=== PATIENT | male | born 1980 | race African-American/Black ===

== ENCOUNTER 2019-06-26 21:10 | Emergency (ER) | payer OTHER ==
[~2019-06-26] VITALS: Ht 172.7 cm; Wt 95.3 kg
--- NOTE | 2019-06-26 21:49 | NUR ---
PT BIBS FOR C/O SI W/ PLAN TO "GET A ROPE A HANG MYSELF". PT AAOX4, RR EVEN AND UNLABORED W/ NAD NOTED. SUICIDE SAFETY PRECAUTIONS IMPLEMENTED W/ SITTER AT BEDSIDE. PT WANDED.
--- NOTE | 2019-06-26 22:15 | NUR ---
PT ON CONSTANT OBSERVATION W/ SITTER AT BEDSIDE FOR SAFETY. NO ACUTE DISTRESS NOTED
[2019-06-26 22:20] LABS: BASOPHILS # (AUTO) 0.1 /CMM (0.0-0.2); BASOPHILS % (AUTO) 1.1 % (0.0-2.0); EOSINOPHILS % (AUTO) 7.8 % (0.0-6.0); HEMATOCRIT 41 % (39-51); HEMOGLOBIN 13.7 g/dL (13.5-17.5); LYMPHOCYTES # (AUTO) 3.1 /CMM (0.8-4.8); LYMPHOCYTES % (AUTO) 33.4 % (20.0-44.0); MEAN CORPUSCULAR HGB CONC 33 g/dl (31.0-36.0); MEAN CORPUSCULAR VOLUME 84 fL (80-96); MONOCYTES % (AUTO) 11.1 % (2.0-12.0); NEUTROPHILS # (AUTO) 4.3 /CMM (1.8-8.9); NEUTROPHILS % (AUTO) 46.6 % (43.0-81.0); PLATELET COUNT (AUTO) 294 /CMM (150-450); RED BLOOD CELL COUNT(AUTO) 4.86 MIL/uL (4.5-6.0); WHITE BLOOD COUNT (AUTO) 9.3 K/uL (4.3-11.0)
[2019-06-26] MEDS ORDERED: OLANZAPINE 5 MG TABLET PO ONE (22:30)
[2019-06-26] MEDS ORDERED: OLANZAPINE 5 MG TABLET ONE (22:34)
[2019-06-26 22:55] LABS: ALANINE AMINOTRANSFERASE 52 U/L (12-78); ALBUMIN 3.8 g/dL (3.4-5.0); ALKALINE PHOSPHATASE 107 U/L (46-116); ASPARTATE AMINOTRANSFERASE 32 U/L (15-37); BILIRUBIN,DIRECT 0.1 mg/dL (0.0-0.2); BILIRUBIN,TOTAL 0.2 mg/dL (0.2-1.0); CALCIUM, SERUM 9.2 mg/dL (8.5-10.1); CARBON DIOXIDE 27 mmol/L (21-32); CHLORIDE 107 mmol/L (98-107); CREATININE 1.1 mg/dL (0.6-1.3); GLUCOSE 103 mg/dL (74-106); POTASSIUM 3.8 mmol/L (3.5-5.1); SODIUM SERUM 143 mmol/L (136-145); TOTAL PROTEIN, SERUM 7.4 g/dL (6.4-8.2); UREA NITROGEN, BLOOD 11 mg/dL (7-18)
[2019-06-26 22:58] LABS: ACETAMINOPHEN 0 ug/ml (10-30); ALCOHOL, BLOOD < 3 mg/dL (0-0); SALICYLATE 1.9 mg/dL (2.8-20.0)
[2019-06-26 22:58] LABS: APPEARANCE,URINE Clear (CLEAR); BILIRUBIN,URINE Negative (NEGATIVE); BLOOD, URINE Negative Ery/uL (NEGATIVE); COLOR,URINE Yellow (YELLOW); KETONES,URINE Negative (NEGATIVE); LEUKOCYTE ESTERASE ,URINE Negative (NEGATIVE); NITRITE, URINE Negative (NEGATIVE); PH,URINE 5.5 (5.0-8.0); PROTEIN,URINE Negative (NEGATIVE); UGLUCOSE Negative (NEGATIVE); UROBILINOGEN,URINE 0.2 EU/dL (0.2)
--- NOTE | 2019-06-27 00:08 | NUR ---
PT ASLEEP, NO ACUTE DISTRESS NOTED, RESP EVEN AND UNLABORED. CALL LIGHT WITHIN REACH. 1:1 SITTER REMAINS AT BEDSIDE FOR PT SAFETY.
--- NOTE | 2019-06-27 00:41 | NUR ---
CLINICALS FAXED TO [facility] FOR VOLUNTARY ADMISSION.
--- NOTE | 2019-06-27 01:38 | NUR ---
PT ON CONSTANT OBSERVATION W/ SITTER AT BEDSIDE FOR SAFETY. PT ASLEEP, NO ACUTE DISTRESS NOTED, RESP EVEN AND UNLABORED. CALL LIGHT WITHIN REACH.
--- NOTE | 2019-06-27 01:48 | NUR ---
SPOKE TO GERA FROM [facility] INTAKE PT ACCEPTED AT [facility] ACCEPTING MD: FIONA PHONE # FOR REPORT PT WILL GO UNIT 1
--- NOTE | 2019-06-27 02:02 | NUR ---
CALL THE [facility] [id number] TRANSPORT ([facility]) ETA [id number]
--- NOTE | 2019-06-27 02:19 | NUR ---
REPORT GIVEN TO LENA PERKINS
[2019-06-27 03:02] VITALS: BP 131/81
--- NOTE | 2019-06-27 03:04 | NUR ---
report given to ems, pt stable for transfer
== END 2019-06-27 03:06 ==
LOC: ER 21:12
DX: R45.851 Suicidal ideations (principal); F29 Unspecified psychosis not due to a substance or known physiological condition; I10 Essential (primary) hypertension
CPT/HCPCS: 36415; 80048; 80076; 80305; 80307; 80329; 81001; 85025; 99285; G0480; 81000-TC

== ENCOUNTER 2019-07-09 13:03 | Emergency (ER) | payer OTHER ==
[~2019-07-09] VITALS: Ht 172.7 cm; Wt 90.7 kg
--- NOTE | 2019-07-09 13:10 | NUR ---
PT BIB SELF C/O SUICIDAL IDEATION "I WANT TO HANG MY SELF", PTIS AAOX4, NOT IN RESPIRATORY DISTRESS, V/S STABLE, KEPT RESTED AND COMFORTABLE, WILL CONTINUE TO MONITOR. WITH 1 TO 1 SITTER AT BEDSIDE.
--- NOTE | 2019-07-09 13:15 | NUR ---
SEEN AND EXAMINED BY RYAN ROSALES
--- NOTE | 2019-07-09 13:19 | NUR ---
SECURITY AT BEDSIDE FOR WANDING.
--- NOTE | 2019-07-09 13:20 | NUR ---
ER PHLEB AT BEDSIDE FOR BLOOD DRAW.
--- NOTE | 2019-07-09 13:20 | NUR ---
URINE SPECIMEN COLLECTED AND SENT TO LAB.
[2019-07-09 13:35] LABS: HEMATOCRIT 40 % (39-51); HEMOGLOBIN 13.2 g/dL (13.5-17.5); MEAN CORPUSCULAR HGB CONC 33 g/dl (31.0-36.0); MEAN CORPUSCULAR VOLUME 84 fL (80-96); RED BLOOD CELL COUNT(AUTO) 4.75 MIL/uL (4.5-6.0); WHITE BLOOD COUNT (AUTO) 6.8 K/uL (4.3-11.0)
[2019-07-09 13:36] LABS: BASOPHILS # (AUTO) 0.1 /CMM (0.0-0.2); BASOPHILS % (AUTO) 1.4 % (0.0-2.0); LYMPHOCYTES # (AUTO) 2.2 /CMM (0.8-4.8); LYMPHOCYTES % (AUTO) 32.4 % (20.0-44.0); MONOCYTES # (AUTO) 0.7 /CMM (0.1-1.30); NEUTROPHILS # (AUTO) 3.2 /CMM (1.8-8.9); NEUTROPHILS % (AUTO) 47.2 % (43.0-81.0); PLATELET COUNT (AUTO) 321 /CMM (150-450)
[2019-07-09 13:38] LABS: APPEARANCE,URINE Clear (CLEAR); BILIRUBIN,URINE Negative (NEGATIVE); BLOOD, URINE Negative Ery/uL (NEGATIVE); COLOR,URINE Yellow (YELLOW); KETONES,URINE Negative (NEGATIVE); LEUKOCYTE ESTERASE ,URINE Negative (NEGATIVE); NITRITE, URINE Negative (NEGATIVE); PH,URINE 5.5 (5.0-8.0); PROTEIN,URINE Negative (NEGATIVE); UGLUCOSE Negative (NEGATIVE)
[2019-07-09 13:43] LABS: CALCIUM, SERUM 8.7 mg/dL (8.5-10.1); CARBON DIOXIDE 26 mmol/L (21-32); CHLORIDE 104 mmol/L (98-107); GLUCOSE 91 mg/dL (74-106); POTASSIUM 3.8 mmol/L (3.5-5.1); SODIUM SERUM 140 mmol/L (136-145); UREA NITROGEN, BLOOD 11 mg/dL (7-18)
[2019-07-09 13:48] LABS: ALANINE AMINOTRANSFERASE 30 U/L (12-78); ALBUMIN 3.8 g/dL (3.4-5.0); ALCOHOL, BLOOD < 3 mg/dL (0-0); ALKALINE PHOSPHATASE 121 U/L (46-116); ASPARTATE AMINOTRANSFERASE 34 U/L (15-37); BILIRUBIN,DIRECT 0.1 mg/dL (0.0-0.2); BILIRUBIN,TOTAL 0.3 mg/dL (0.2-1.0); TOTAL PROTEIN, SERUM 7.1 g/dL (6.4-8.2)
[2019-07-09 13:50] LABS: ACETAMINOPHEN 0 ug/ml (10-30); SALICYLATE 1.9 mg/dL (2.8-20.0)
--- NOTE | 2019-07-09 14:12 | NUR ---
FAXED CLINICALS TO [facility].
--- NOTE | 2019-07-09 14:35 | NUR ---
PATIENT ACCEPTED AT [facility] ACCEPTING: DR ROSARIO AND DR [facility]RA[facility]AM # FOR REPORT: [phone] EXT [phone]
--- NOTE | 2019-07-09 15:17 | NUR ---
CALLED [id number]. SCHEDULED AMBULANCE WITH [facility]. ETA 45 MINUTES. TRIP NUMBER [id number].
--- NOTE | 2019-07-09 16:31 | NUR ---
REPORT GIVEN. PT AWAITING TRANSPORT AMBULANCE TO [facility].
[2019-07-09 16:47] VITALS: BP 134/79
--- NOTE | 2019-07-09 16:47 | NUR ---
REPORT GIVEN TO EMT FOR PT TRANSFER TO [facility].
== END 2019-07-09 16:49 ==
LOC: ER 13:05
DX: R45.851 Suicidal ideations (principal); I10 Essential (primary) hypertension; F31.9 Bipolar disorder, unspecified; Z59.0 Homelessness
CPT/HCPCS: 36415; 80048; 80076; 80305; 80307; 80329; 81001; 85025; 99285; G0480; 81000-TC

== ENCOUNTER 2019-09-23 20:15 | Emergency (ER) | payer OTHER ==
[~2019-09-23] VITALS: Ht 172.7 cm; Wt 99.8 kg
--- NOTE | 2019-09-23 20:30 | NUR ---
PT BIBSELF FOR SI W/ A PLAN TO CUT HIS THROAT. DENIES HI. PT AAOX4, VSS, RESPIRATIONS EVEN AND UNLABORED ON RA W/ NAD NOTED. PT CHANGED INTO GOWN, BELONGINGS TO LOCKER, PLACED ON SUICIDE PRECAUTIONS. 1:! SITTER AT BEDSIDE FOR SAFETY.
[2019-09-23 21:08] LABS: BASOPHILS # (AUTO) 0.1 /CMM (0.0-0.2); BASOPHILS % (AUTO) 1.3 % (0.0-2.0); EOSINOPHILS % (AUTO) 4.3 % (0.0-6.0); HEMATOCRIT 42 % (39-51); HEMOGLOBIN 14.1 g/dL (13.5-17.5); LYMPHOCYTES # (AUTO) 2.8 /CMM (0.8-4.8); LYMPHOCYTES % (AUTO) 28.2 % (20.0-44.0); MEAN CORPUSCULAR HGB CONC 33 g/dl (31.0-36.0); MEAN CORPUSCULAR VOLUME 85 fL (80-96); MONOCYTES # (AUTO) 0.9 /CMM (0.1-1.30); MONOCYTES % (AUTO) 8.8 % (2.0-12.0); NEUTROPHILS # (AUTO) 5.7 /CMM (1.8-8.9); NEUTROPHILS % (AUTO) 57.4 % (43.0-81.0); PLATELET COUNT (AUTO) 350 /CMM (150-450); RED BLOOD CELL COUNT(AUTO) 4.99 MIL/uL (4.5-6.0); WHITE BLOOD COUNT (AUTO) 9.9 K/uL (4.3-11.0)
[2019-09-23 21:18] LABS: CALCIUM, SERUM 8.7 mg/dL (8.5-10.1); CARBON DIOXIDE 25 mmol/L (21-32); CHLORIDE 105 mmol/L (98-107); CREATININE 1.2 mg/dL (0.6-1.3); GLUCOSE 88 mg/dL (74-106); POTASSIUM 3.5 mmol/L (3.5-5.1); SODIUM SERUM 139 mmol/L (136-145); UREA NITROGEN, BLOOD 13 mg/dL (7-18)
[2019-09-23 21:18] LABS: APPEARANCE,URINE Clear (CLEAR); BILIRUBIN,URINE Negative (NEGATIVE); BLOOD, URINE Negative Ery/uL (NEGATIVE); COLOR,URINE Yellow (YELLOW); KETONES,URINE Negative (NEGATIVE); LEUKOCYTE ESTERASE ,URINE Negative (NEGATIVE); NITRITE, URINE Negative (NEGATIVE); PH,URINE 5.5 (5.0-8.0); PROTEIN,URINE Negative (NEGATIVE); UGLUCOSE Negative (NEGATIVE); UROBILINOGEN,URINE 0.2 EU/dL (0.2)
[2019-09-23 21:23] LABS: ACETAMINOPHEN < 10 ug/ml (10-30); ALANINE AMINOTRANSFERASE 25 U/L (12-78); ALBUMIN 3.8 g/dL (3.4-5.0); ALCOHOL, BLOOD < 3 mg/dL (0-0); ALKALINE PHOSPHATASE 92 U/L (46-116); ASPARTATE AMINOTRANSFERASE 21 U/L (15-37); BILIRUBIN,DIRECT 0.1 mg/dL (0.0-0.2); BILIRUBIN,TOTAL 0.3 mg/dL (0.2-1.0)
--- NOTE | 2019-09-24 00:11 | NUR ---
PER JIMI FROM [facility] INTAKE, PT ON "DO NOT ADMIT" LIST AT [facility]. CLINICAL INFORMATION BEING REVIEWED AT [facility]
--- NOTE | 2019-09-24 00:11 | NUR ---
Stephie sands in ED - 09/24/19 at 0350 by [facility]E PER JIMI FROM [facility] INTAKE, NO BEDS AVAILABLE AT [facility]. CLINICAL INFORMATION BEING REVIEWED AT [facility]
--- NOTE | 2019-09-24 01:05 | NUR ---
PT RESTING COMFORTABLY IN BED.VSS. NO ACUTE DISTRESS NOTED. WILLC CONTINUE TO MONITOR
--- NOTE | 2019-09-24 03:40 | NUR ---
PT RESTING COMFORTABLY IN BED.VSS. NO ACUTE DISTRESS NOTED. WILLC CONTINUE TO MONITOR
--- NOTE | 2019-09-24 04:03 | NUR ---
PER JIMI FROM [facility] INTAKE, NO BEDS AVAILABLE AT THIS TIME
--- NOTE | 2019-09-24 05:30 | NUR ---
PER JIMI; ACCEPTED [facility], WILL CALL BACK FOR INFO
--- NOTE | 2019-09-24 05:56 | NUR ---
PT RESTING COMFORTABLY IN BED. VSS. NO ACUTE DISTRESS NOTED. WILL CONTINUE TO MONITOR. SITTER AT BEDSIDE FOR SAFETY
--- NOTE | 2019-09-24 07:19 | NUR ---
RECEIVED PATIENT RESTING COMFORTABLY IN BED. VSS. NO ACUTE DISTRESS NOTED. WILL CONTINUE TO MONITOR. SITTER AT BEDSIDE
--- NOTE | 2019-09-24 09:01 | NUR ---
PATIENT IN BED ASLEEP, EASILY AROUSABLE BY VOICE. HOOKED TO MONITOR, VSS. SITTER AT BEDSIDE
--- NOTE | 2019-09-24 11:07 | NUR ---
PATIENT IN BED ASLEEP, TUCKED IN BLANKET, EASILY AROUSABLE BY VOICE. HOOKED TO MONITOR, VSS. SITTER AT BEDSIDE
--- NOTE | 2019-09-24 12:10 | NUR ---
OFFERED FOOD TRAY, PATIENT REFUSED
--- NOTE | 2019-09-24 12:46 | NUR ---
PROVIDED W LUNCH TRAY, TOLERATED PO WELL
--- NOTE | 2019-09-24 14:16 | NUR ---
PATIENT IN BED ASLEEP, TUCKED IN BLANKET. EASILY AROUSABLE BY VOICE. HOOKED TO MONITOR, VSS. NOT IN DISTRESS. WILL CONTINUE TO MONITOR ACCORDINGLY. SITTER AT BEDSIDE.
--- NOTE | 2019-09-24 16:22 | NUR ---
PATIENT IN BED ASLEEP. EASILY AROUSABLE BY VOICE. HOOKED TO MONITOR, VSS. NOT IN DISTRESS. WILL CONTINUE TO MONITOR ACCORDINGLY. SITTER AT BEDSIDE.
--- NOTE | 2019-09-24 18:36 | NUR ---
PATIENT IN BED ASLEEP, TUCKED IN BLANKET. EASILY AROUSABLE BY VOICE. HOOKED TO MONITOR, VSS. NOT IN DISTRESS. WILL CONTINUE TO MONITOR ACCORDINGLY. SITTER AT BEDSIDE.
--- NOTE | 2019-09-24 20:46 | NUR ---
SPOKE WITH TIMOTHY FROM [facility] INTAKE, STILL NO BEDS AVAILABLE AT THIS TIME
--- NOTE | 2019-09-24 21:56 | NUR ---
SPOKE WITH RICHARD FROM [facility], NO BEDS AVAILABLE AT THIS TIME
--- NOTE | 2019-09-24 21:57 | NUR ---
CALLED [facility], NO BEDS AVAILABLE AT THIS TIME
--- NOTE | 2019-09-24 22:04 | NUR ---
PT RESTING COMFORTABLY IN BED. VITAL SIGNS STABLE. SITTER AT BEDSIDE. WILL CONTINUE TO MONITOR
--- NOTE | 2019-09-25 00:08 | NUR ---
SPOKE WITH CASSIE FROM [facility] INTAKE, STILL NO BEDS AVAILABLE AT THIS TIME
--- NOTE | 2019-09-25 01:14 | NUR ---
PT RESTING COMFORTABLY IN BED. VITAL SIGNS STABLE. SITTER AT BEDSIDE. WILL CONTINUE TO MONITOR
--- NOTE | 2019-09-25 04:08 | NUR ---
PATIENT IS SLEEPING. EASILY AROUSABLE. BREATHING EVENLY AND UNLABORED ON ROOM AIR. SITTER AT BEDSIDE.
--- NOTE | 2019-09-25 06:40 | NUR ---
PT ACCEPTED TO [facility] ACCEPTING MD: DR. ROSARIO NUMBER FOR REPORT: [phone] EXT [phone] ROOM ASSIGNMENT: [id number]
--- NOTE | 2019-09-25 06:55 | NUR ---
[facility] ETA [id number]
--- NOTE | 2019-09-25 07:19 | NUR ---
REPORT GIVEN TO LENA FLEMING FROM [facility]
[2019-09-25 07:33] VITALS: BP 132/77
--- NOTE | 2019-09-25 07:38 | NUR ---
REPORT GIVEN TO [facility] FOR TRANSPORTATION [facility]
== END 2019-09-25 07:38 | disposition short-term general hospital (02) ==
LOC: ER 20:16
DX: R45.851 Suicidal ideations (principal); F32.9 Major depressive disorder, single episode, unspecified; I10 Essential (primary) hypertension; Z59.0 Homelessness
CPT/HCPCS: 36415; 80048; 80076; 80305; 80307; 80329; 81001; 85025; 99285; G0480; 81000-TC

== ENCOUNTER 2019-10-27 22:12 | Emergency (ER) | payer OTHER ==
[~2019-10-27] VITALS: Ht 175.3 cm; Wt 99.8 kg
--- NOTE | 2019-10-27 22:55 | NUR ---
PT CAME TO THE ED C/O +S/I W/ A PLAN TO "OD ON PILLS" WANTS TO GO PSYCH VOLUNTARY, DENIES HI. PT AAOX4, VSS,RESPIRATIONS EVEN AND UNLABORED ON RA W/ NAD NOTED. PT CHANGED INTO GOWN, BELONGINGS PLACED TO LOCKER, SUICIDE PRECAUTIONS IMPLEMENTED. SITTER AT BEDSIDE FOR SAFETY
[2019-10-27 23:05] LABS: BASOPHILS # (AUTO) 0.1 /CMM (0.0-0.2); BASOPHILS % (AUTO) 0.5 % (0.0-2.0); EOSINOPHILS % (AUTO) 2.4 % (0.0-6.0); HEMATOCRIT 41 % (39-51); HEMOGLOBIN 13.6 g/dL (13.5-17.5); LYMPHOCYTES # (AUTO) 3.4 /CMM (0.8-4.8); LYMPHOCYTES % (AUTO) 28.9 % (20.0-44.0); MEAN CORPUSCULAR HGB CONC 33 g/dl (31.0-36.0); MEAN CORPUSCULAR VOLUME 85 fL (80-96); MONOCYTES # (AUTO) 0.9 /CMM (0.1-1.30); MONOCYTES % (AUTO) 7.8 % (2.0-12.0); NEUTROPHILS # (AUTO) 7.2 /CMM (1.8-8.9); NEUTROPHILS % (AUTO) 60.4 % (43.0-81.0); PLATELET COUNT (AUTO) 322 /CMM (150-450); RED BLOOD CELL COUNT(AUTO) 4.84 MIL/uL (4.5-6.0); WHITE BLOOD COUNT (AUTO) 11.9 K/uL (4.3-11.0)
[2019-10-27 23:15] LABS: CALCIUM, SERUM 8.8 mg/dL (8.5-10.1); CARBON DIOXIDE 27 mmol/L (21-32); CHLORIDE 108 mmol/L (98-107); CREATININE 1.1 mg/dL (0.6-1.3); GLUCOSE 107 mg/dL (74-106); POTASSIUM 3.3 mmol/L (3.5-5.1); SODIUM SERUM 142 mmol/L (136-145); UREA NITROGEN, BLOOD 9 mg/dL (7-18)
[2019-10-27 23:21] LABS: ALANINE AMINOTRANSFERASE 20 U/L (12-78); ALBUMIN 3.6 g/dL (3.4-5.0); ALKALINE PHOSPHATASE 120 U/L (46-116); ASPARTATE AMINOTRANSFERASE 23 U/L (15-37); BILIRUBIN,DIRECT 0.1 mg/dL (0.0-0.2); BILIRUBIN,TOTAL 0.2 mg/dL (0.2-1.0); TOTAL PROTEIN, SERUM 7.1 g/dL (6.4-8.2)
[2019-10-27 23:26] LABS: ACETAMINOPHEN < 2 ug/ml (10-30); ALCOHOL, BLOOD < 3 mg/dL (0-0); SALICYLATE 1.7 mg/dL (2.8-20.0)
[2019-10-28 01:07] LABS: APPEARANCE,URINE Clear (CLEAR); BILIRUBIN,URINE Negative (NEGATIVE); BLOOD, URINE Negative Ery/uL (NEGATIVE); COLOR,URINE Yellow (YELLOW); KETONES,URINE Negative (NEGATIVE); LEUKOCYTE ESTERASE ,URINE Negative (NEGATIVE); NITRITE, URINE Negative (NEGATIVE); PH,URINE 5.5 (5.0-8.0); PROTEIN,URINE Negative (NEGATIVE); UGLUCOSE Negative (NEGATIVE); UROBILINOGEN,URINE 0.2 EU/dL (0.2)
[2019-10-28] MEDS ORDERED: POTASSIUM CHLORIDE 20 MEQ TAB.PRT.SR PO ONE (02:19)
[2019-10-28] MEDS: POTASSIUM CHLORIDE 20 MEQ TAB.PRT.SR PO ONE (02:19)
--- NOTE | 2019-10-28 03:21 | NUR ---
PT RESTING COMFORTABLY IN BED. VSS. NO ACUTE DISTRESS NOTED. SITTER AT BEDSIDE FOR SAFETY. WILL CONTINUE TO MONITOR
--- NOTE | 2019-10-28 03:22 | NUR ---
[facility] CALLED PT IS DO NOT ADMIT THERE AND [facility]. INFO FAXED TO [facility]. CHECK WITH [facility] @ [phone].
--- NOTE | 2019-10-28 04:00 | NUR ---
PT RESTING COMFORTABLY IN BED. VSS. NO ACUTE DISTRESS NOTED. SITTER AT BEDSIDE FOR SAFETY. WILL CONTINUE TO MONITOR
--- NOTE | 2019-10-28 06:00 | NUR ---
PT ASLEEP. VSS. NO ACUTE DISTRESS NOTED. SITTER AT BEDSIDE
--- NOTE | 2019-10-28 06:54 | NUR ---
SEEN BY DONALDO LIVINGSTON.
--- NOTE | 2019-10-28 07:23 | NUR ---
Patient discharged to home in stable condition. Written and verbal after care instructions given. Patient verbalizes understanding of instruction.
[2019-10-28 07:24] VITALS: BP 129/79
== END 2019-10-28 07:24 | disposition home or self-care (01) ==
LOC: ER 22:12
DX: R45.851 Suicidal ideations (principal); F32.9 Major depressive disorder, single episode, unspecified; F12.10 Cannabis abuse, uncomplicated; F20.9 Schizophrenia, unspecified; I10 Essential (primary) hypertension; Z59.0 Homelessness
CPT/HCPCS: 36415; 80048; 80076; 80305; 80307; 80329; 81001; 85025; 99283; A6403; G0480; 81000-TC

== ENCOUNTER 2020-05-06 19:55 | Emergency (ER) | payer OTHER ==
[~2020-05-06] VITALS: Ht 175.3 cm; Wt 97.5 kg
[2020-05-06 20:43] LABS: BASOPHILS # (AUTO) 0.1 /CMM (0.0-0.2); BASOPHILS % (AUTO) 1.1 % (0.0-2.0); EOSINOPHILS % (AUTO) 4.7 % (0.0-6.0); HEMATOCRIT 42 % (39-51); LYMPHOCYTES # (AUTO) 2.7 /CMM (0.8-4.8); LYMPHOCYTES % (AUTO) 28.8 % (20.0-44.0); MEAN CORPUSCULAR HGB CONC 34 g/dl (31.0-36.0); MEAN CORPUSCULAR VOLUME 85 fL (80-96); MONOCYTES % (AUTO) 10.6 % (2.0-12.0); NEUTROPHILS # (AUTO) 5.1 /CMM (1.8-8.9); NEUTROPHILS % (AUTO) 54.8 % (43.0-81.0); PLATELET COUNT (AUTO) 384 /CMM (150-450); RED BLOOD CELL COUNT(AUTO) 4.88 MIL/uL (4.5-6.0); WHITE BLOOD COUNT (AUTO) 9.4 K/uL (4.3-11.0)
[2020-05-06 20:48] LABS: BILIRUBIN,URINE Negative (NEGATIVE); COLOR,URINE YELLOW (YELLOW); LEUKOCYTE ESTERASE ,URINE Negative (NEGATIVE); NITRITE, URINE Negative (NEGATIVE); PROTEIN,URINE Negative (NEGATIVE); UGLUCOSE Negative (NEGATIVE)
[2020-05-06 20:51] LABS: CALCIUM, SERUM 8.9 mg/dL (8.5-10.1); CARBON DIOXIDE 27 mmol/L (21-32); CHLORIDE 105 mmol/L (98-107); CREATININE 1.1 mg/dL (0.6-1.3); GLUCOSE 105 mg/dL (74-106); POTASSIUM 3.9 mmol/L (3.5-5.1); SODIUM SERUM 141 mmol/L (136-145); UREA NITROGEN, BLOOD 12 mg/dL (7-18)
[2020-05-06 20:53] LABS: BACTERIA,URINE Rare /HPF (None Seen); RBC,URINE 0-2 /HPF (0-2); SQUAMOUS EPITHELIAL CELL,UR None Seen /HPF (None Seen); WBC,URINE 0-2 /HPF (0-3)
--- NOTE | 2020-05-06 20:54 | NUR ---
PT AAOX4. BIBS C/O SI PLANNING TO CUT HIS WRIST. PT REQUESTING VOLUNTARY ADMISSION TO [facility]. SKIN WARM AND INTACT. STOREROOM SUPERVISOR AT BEDSIDE FOR BLOOD DRAW. COVID SWABBED, SENT TO LAB.
[2020-05-06 20:58] LABS: ALANINE AMINOTRANSFERASE 36 U/L (12-78); ALBUMIN 3.8 g/dL (3.4-5.0); ALCOHOL, BLOOD < 3 mg/dL (0-0); ALKALINE PHOSPHATASE 105 U/L (46-116); ASPARTATE AMINOTRANSFERASE 28 U/L (15-37); BILIRUBIN,DIRECT 0.1 mg/dL (0.0-0.2); BILIRUBIN,TOTAL 0.2 mg/dL (0.2-1.0); TOTAL PROTEIN, SERUM 7.6 g/dL (6.4-8.2)
[2020-05-06 20:59] LABS: ACETAMINOPHEN 0 ug/ml (10-30)
--- NOTE | 2020-05-06 21:36 | NUR ---
Call from lab. Rapid covid negative.
--- NOTE | 2020-05-06 22:06 | NUR ---
FACESHEET AND CLINICAL FAXED TO [facility] INTAKE FOR VOLUNTARY PSYCH ADMISSION.
--- NOTE | 2020-05-06 22:38 | NUR ---
CJ CALLED FROM [facility] INTAKE, THEY ARE UNABLE TO ACCEPT PATIENT.
--- NOTE | 2020-05-06 22:48 | NUR ---
PT AWARE NO BED AT [facility].
--- NOTE | 2020-05-06 22:53 | NUR ---
PT REQUESTED TO LEAVE. DENIES SI AND HI. AMBULATED OUT OF ED. MD AWARE.
[2020-05-06 22:55] VITALS: BP 122/71
== END 2020-05-06 22:55 | disposition home or self-care (01) ==
LOC: ER 19:57
DX: R45.851 Suicidal ideations (principal); F12.10 Cannabis abuse, uncomplicated; Z59.0 Homelessness; Z20.822 Contact with and (suspected) exposure to COVID-19; F31.9 Bipolar disorder, unspecified; F20.9 Schizophrenia, unspecified; I10 Essential (primary) hypertension
CPT/HCPCS: 36415; 80048; 80076; 80299; 80307; 80320; 81001; 85025; 87426; 99285; C9803; G0480

== ENCOUNTER 2020-10-01 02:04 | Emergency (ER) | payer OTHER ==
[~2020-10-01] VITALS: Ht 172.7 cm; Wt 90.7 kg
[2020-10-01 02:57] VITALS: BP 135/93
--- NOTE | 2020-10-01 03:00 | NUR ---
TO ER BED 15 AMBULATORY C/O SUICIDAL IDEATION PLANS TO OVERDOSE. REQUESTING VOLUNTARY ADM TO [facility]. PT AAOX4 NO ACUTE DISTRESS NOTED, RESP EVEN AND UNLABORED. PT CALM AND COOPERATIVE AT THIS TIME. PLACE PT ON HOSPITAL GOWN, ALL BELONGINGS REMOVED. 1:1 SITTER AT BEDSIDE FOR PT SAFETY.
[2020-10-01 03:18] LABS: BASOPHILS # (AUTO) 0.1 /CMM (0.0-0.2); BASOPHILS % (AUTO) 0.6 % (0.0-2.0); EOSINOPHILS % (AUTO) 3.5 % (0.0-6.0); HEMATOCRIT 40 % (39-51); HEMOGLOBIN 13.4 g/dL (13.5-17.5); LYMPHOCYTES # (AUTO) 2.8 /CMM (0.8-4.8); LYMPHOCYTES % (AUTO) 32.1 % (20.0-44.0); MEAN CORPUSCULAR HGB CONC 33 g/dl (31.0-36.0); MEAN CORPUSCULAR VOLUME 87 fL (80-96); MONOCYTES # (AUTO) 1.2 /CMM (0.1-1.30); NEUTROPHILS # (AUTO) 4.4 /CMM (1.8-8.9); NEUTROPHILS % (AUTO) 49.8 % (43.0-81.0); PLATELET COUNT (AUTO) 324 /CMM (150-450); WHITE BLOOD COUNT (AUTO) 8.8 K/uL (4.3-11.0)
[2020-10-01 03:31] LABS: CARBON DIOXIDE 25 mmol/L (21-32); CHLORIDE 105 mmol/L (98-107); CREATININE 1.1 mg/dL (0.6-1.3); GLUCOSE 96 mg/dL (74-106); SODIUM SERUM 140 mmol/L (136-145); UREA NITROGEN, BLOOD 12 mg/dL (7-18)
[2020-10-01 03:37] LABS: ALANINE AMINOTRANSFERASE 23 U/L (12-78); ALBUMIN 3.8 g/dL (3.4-5.0); ALKALINE PHOSPHATASE 106 U/L (46-116); ASPARTATE AMINOTRANSFERASE 19 U/L (15-37); BILIRUBIN,DIRECT 0.1 mg/dL (0.0-0.2); BILIRUBIN,TOTAL 0.2 mg/dL (0.2-1.0); TOTAL PROTEIN, SERUM 7.5 g/dL (6.4-8.2)
[2020-10-01 03:38] LABS: ACETAMINOPHEN 0 ug/ml (10-30); ALCOHOL, BLOOD < 3 mg/dL (0-0)
[2020-10-01 04:10] LABS: BILIRUBIN,URINE Negative (NEGATIVE); COLOR,URINE YELLOW (YELLOW); LEUKOCYTE ESTERASE ,URINE Negative (NEGATIVE); NITRITE, URINE Negative (NEGATIVE); PH,URINE 6.5 (5.0-8.0); PROTEIN,URINE Negative (NEGATIVE); UGLUCOSE Negative (NEGATIVE); UROBILINOGEN,URINE 0.2 EU/dL (0.2)
--- NOTE | 2020-10-01 05:32 | NUR ---
PATIENT STATES, "I FEEL BETTER. I THINK I AM JUST GONNA GO, AND NAH, I'M NOT SUICIDAL." PATIENT AMBULATORY WITH A STEADY GAIT.
--- NOTE | 2020-10-01 05:32 | NUR ---
KRUNAL RUSSELL MADE AWARE OF PT WANTING TO LEAVE.
== END 2020-10-01 06:42 | disposition home or self-care (01) ==
LOC: ER 02:04
DX: R45.851 Suicidal ideations (principal); Z20.822 Contact with and (suspected) exposure to COVID-19; I10 Essential (primary) hypertension; Z59.0 Homelessness; F31.9 Bipolar disorder, unspecified
CPT/HCPCS: 36415; 80048; 80076; 80143; 80307; 80320; 81003; 85025; 87426; 99285; C9803; G0480

== ENCOUNTER 2023-08-17 10:20 | Emergency (ER) | payer OTHER ==
[~2023-08-17] VITALS: Ht 172.7 cm; Wt 85.7 kg
[2023-08-17 11:09] VITALS: BP 131/93; TEMP 98.7; O2SAT 98
== END 2023-08-17 13:28 | disposition left against medical advice (07) ==
LOC: ER 10:23
DX: M79.10 Myalgia, unspecified site (principal); F29 Unspecified psychosis not due to a substance or known physiological condition; I10 Essential (primary) hypertension; F20.9 Schizophrenia, unspecified; F31.9 Bipolar disorder, unspecified; Z59.00 Homelessness unspecified